=== PATIENT | female | born 1945 | race Caucasian/White ===

== ENCOUNTER 2024-07-31 09:42 | Emergency (ER) | payer MEDICARE ==
[~2024-07-31] VITALS: Ht 152.4 cm; Wt 63.3 kg
[~2024-07-31 09:42] MED LIST: ACETAMINOPHEN-1 EAC4 PO; ATORVASTATIN CA10 MG PO; COQ-10100 MG PO; HYZAAR 100-12.1 EACH PO; IBUPROFEN200 MG PO; LOSARTAN POTAS100 MG PO; SYMBICORT 16010.2 GM PO; TRELEGY ELLIPT1 EAC1; VENTOLIN HFA18 GM PO; ZANAFLEX4 MG PO
[2024-07-31 09:45] VITALS: PULSE 66; RESP 18; TEMP 97.6; O2SAT 97
[2024-07-31] MEDS ORDERED: DOXYCYCLINE HY100 MG PO (10:50)
== END 2024-07-31 10:57 | disposition home or self-care (01) ==
LOC: FSED 09:45
DX: R05.9 Cough, unspecified (principal); J32.9 Chronic sinusitis, unspecified; S50.872A Other superficial bite of left forearm, initial encounter; S50.871A Other superficial bite of right forearm, initial encounter; S60.572A Other superficial bite of hand of left hand, initial encounter; W54.0XXA Bitten by dog, initial encounter; Y92.89 Other specified places as the place of occurrence of the external cause; I10 Essential (primary) hypertension; J44.9 Chronic obstructive pulmonary disease, unspecified; E78.5 Hyperlipidemia, unspecified; Z11.52 Encounter for screening for COVID-19; Z85.118 Personal history of other malignant neoplasm of bronchus and lung
CPT/HCPCS: 0223U; 87400; 87420; 99284